=== PATIENT | female | born 2005 | race Caucasian/White ===

== ENCOUNTER 2025-02-07 01:43 | Emergency (ER) | payer BC ==
[~2025-02-07] VITALS: Ht 165.1 cm; Wt 70.5 kg
[2025-02-07 02:26] VITALS: TEMP 98
[2025-02-07 03:00] LABS: BASOPHILS % (AUTO) 0.4 % (0-1); EOSINOPHILS # (AUTO) 0.1 X10'3 (0-0.9); EOSINOPHILS % (AUTO) 1.6 % (0-6); HEMATOCRIT 40.2 % (35.0-45.0); HEMOGLOBIN 13.5 g/dl (12.0-16.0); LYMPHOCYTES # (AUTO) 3.5 X10'3 (1.1-4.8); LYMPHOCYTES % (AUTO) 38.7 % (21-51); MEAN CORPUSCULAR HEMOGLOBIN 30.8 PG (27.0-31.0); MEAN CORPUSCULAR HGB CONC 33.5 g/dL (33.0-36.5); MEAN PLATELET VOLUME 8.9 FL (7.4-10.4); MONOCYTES # (AUTO) 0.4 X10'3 (0-0.9); MONOCYTES % (AUTO) 4.5 % (2-12); NEUTROPHILS % (AUTO) 54.8 % (42-75); PLATELET COUNT 294 X10'3 (140-440); RED BLOOD COUNT 4.37 X10'6 (4.20-5.60); RED CELL DISTRIBUTION WIDTH 12.7 % (11.5-14.5); WHITE BLOOD COUNT 9.1 X10'3 (4.5-11.0)
[2025-02-07 03:05] LABS: BILIRUBIN,URINE NEGATIVE (Neg); CLARITY,URINE CLEAR (Clear); COLOR,URINE YELLOW (Yellow); GLUCOSE, URINE NEGATIVE (Neg); KETONES,URINE NEGATIVE (Neg); LEUKOCYTE ESTERASE ,URINE NEGATIVE (Neg); NITRITES, URINE NEGATIVE (Neg); OCCULT BLOOD,URINE NEGATIVE (Neg); PROTEIN,URINE NEGATIVE (Neg); UROBILINOGEN,URINE 0.2 E.U/dL (0.2-1.0)
[2025-02-07 03:08] LABS: UA COLLECTION TYPE VOIDED
--- NOTE | 2025-02-07 03:23 | Physician Documentation ---
History of Present Illness ~ Chief Complaint: Suicidal Ideation Stated Complaint: MENTAL HEALTH EVAL Time Seen by MD: 02:27 HPI Patient presents to the emergency room for evaluation of suicidal ideation. Self-inflicted cut olson that she reports to bilateral upper arms happened yesterday. She has been drinking this evening. Medication Reconciliation Allergies: Coded Allergies: No Known Allergies (Unverified , 02/07/25) Scheduled Cetirizine Hcl (Zyrtec), 1 CAP PO DAILY, (Reported) Duloxetine HCl (Cymbalta), 1 CAP PO DAILY, (Reported) Review of Systems ROS All review of systems negative except as per HPI Physical Exam Vital Signs: Temperature: 98.0, Source: Oral, Heart Rate: 95, Respiratory Rate: 18, BP: 129/87, Pulse Oximetry: 96, Weight: 70.450 Oxygen Flow Rate: 0 Physical Exam General: Patient is awake, alert, oriented x4, tearful Head: Normocephalic and atraumatic. Eyes: Conjunctival normal. EOMI. PERRL. ENT: Mucous membranes moist. Neck: Supple, trachea is midline. Chest: Clear to auscultation bilaterally without rales, rhonchi, or wheezes. There is no accessory muscle use or retractions. Cardiac: RRR without murmurs, gallops, or rubs. Psych: Suicidal, cooperative, good eye contact Progress Results/Orders Results/Orders Orders - SAMUEL BYRNE MD Covid19 Binax Poc Result Entry (02/07/25 02:45) Med Rec (02/07/25 03:01) 1799.11 (02/07/25 03:01) Close Observation Level (02/07/25 03:01) Substance Use Navigator (02/07/25 03:01) Regular Diet (02/07/25 Breakfast) Completed Orders - SAMUEL BYRNE MD Cbc/Diff (02/07/25 02:45) Urinalysis, Cult If Indicated (02/07/25 02:45) Drug Screen, Urine (02/07/25 02:45) CMP (02/07/25 02:45) Hcg, Ur Ql (02/07/25 03:01) Ethanol (02/07/25 02:40) TSH (02/07/25 02:40) Vital Signs 02/07/25 02/07/25 02:26 03:38 Temp 98.0 Pulse 95 Resp 18 16 B/P (MAP) 129/87 Pulse Ox 96 O2 Flow Rate 0 Laboratory Tests Test 02/07/25 02:17 02/07/25 02:20 02/07/25 02:40 Urine Specimen Description Voided Urine Color Yellow Urine Clarity Clear Urine pH 7.0 Urine Specific [place] <=1.005 Urine Protein Negative Urine Glucose (UA) Negative Urine Ketones Negative Urine Occult Blood Negative Urine Nitrite Negative Urine Bilirubin Negative Urine Urobilinogen 0.2 Urine Leukocyte Esterase Negative Urine Culture Indicated Not ind Volume Urine Centrifuged 10 ml Urine HCG, Qualitative Negative Urine Comment Urine Opiates Screen Negative Urine Methadone Screen Negative Urine Fentanyl Screen Negative Urine Barbiturates Screen Negative Urine Phencyclidine Screen Negative Urine Amphetamines Screen Negative Urine Benzodiazepines Screen Negative Urine Cocaine Screen Negative Urine Cannabinoids Screen Negative Drug Screen Comment SARS-CoV-2 Antigen (Rapid) Negative White Blood Count 9.1 Red Blood Count 4.37 Hemoglobin 13.5 Hematocrit 40.2 Mean Corpuscular Volume 92.0 Mean Corpuscular Hemoglobin 30.8 Mean Corpuscular Hemoglobin Concent 33.5 Red Cell Distribution Width 12.7 Platelet Count 294 Mean Platelet Volume 8.9 Neutrophils (%) (Auto) 54.8 Lymphocytes (%) (Auto) 38.7 Monocytes (%) (Auto) 4.5 Eosinophils (%) (Auto) 1.6 Basophils (%) (Auto) 0.4 Neutrophils # (Auto) 5.0 Lymphocytes # (Auto) 3.5 Monocytes # (Auto) 0.4 Eosinophils # (Auto) 0.1 Basophils # (Auto) 0.0 CBC Comment Sodium Level 146 H Potassium Level 4.3 Chloride Level 109 H Carbon Dioxide Level 24.1 Anion Gap 13 Blood Urea Nitrogen 4 L Creatinine 0.61 Estimated GFR/1.73 m2 > 90 BUN/Creatinine Ratio 6.6 L Glucose Level 95 Calcium Level 9.0 Total Bilirubin 0.3 Aspartate Amino Transf (AST/SGOT) 21 Alanine Aminotransferase (ALT/SGPT) 15 Alkaline Phosphatase 98 Total Protein 7.6 Albumin 4.1 Globulin 3.5 Albumin/Globulin Ratio 1.2 Thyroid Stimulating Hormone (TSH) 0.43 Chemistry Comments Ethyl Alcohol Level 183 H Medical Decision Making Findings Patient presents to the emergency room for evaluation of suicidal ideation. Differentials include but are not limited to thyroid disorder, suicidal ideation, gravely disabled, dysthymic disorder therefore labs ordered which were reassuring and patient is medically cleared for mental health evaluation. Departure Disposition: 30 STILL A PATIENT Impression: Primary Impression: Depression Additional Impression: Alcoholic intoxication Condition: Guarded Referrals: NO PRIMARY CARE PROVIDER (PCP) Signature Scribe Signature: No scribe Attestation: The note accurately reflects work and decisions made by me.Samuel Byrne MD 02/07/25 04:21 SAMUEL BYRNE MD Feb 07, 2025 03:23
[2025-02-07 03:33] LABS: URINE HCG NEGATIVE (NEG)
[2025-02-07 03:34] LABS: ALANINE AMINOTRANSFERASE 15 U/L (12-78); ALBUMIN 4.1 G/DL (3.4-5.0); ALBUMIN/GLOBULIN RATIO 1.2 (1.1-1.5); ALKALINE PHOSPHATASE 98 IU/L (20-180); ANION GAP 13 (8-16); ASPARTATE AMINO TRANSFERASE 21 U/L (10-37); BILIRUBIN,TOTAL 0.3 MG/DL (0.1-1.0); BLOOD UREA NITROGEN 4 MG/DL (7-18); BUN/CREATININE RATIO 6.6 (10.0-20.0); CHLORIDE 109 MMOL/L (99-107); CREATININE 0.61 MG/DL (0.40-0.90); GLUCOSE 95 MG/DL (70-104); SODIUM 146 MMOL/L (135-145); TOTAL CARBON DIOXIDE 24.1 MMOL/L (24-32); TOTAL PROTEIN 7.6 G/DL (6.4-8.2); eCRCL 132 ML/MIN; eGFR > 90 ML/MIN
[2025-02-07 03:38] LABS: URINE AMPHETAMINE SCREEN NEGATIVE (Neg); URINE BARBITUATE SCREEN NEGATIVE (Neg); URINE BENZODIAZEPINES SCREEN NEGATIVE (Neg); URINE CANNABINOID SCREEN NEGATIVE (Neg); URINE COCAINE SCREEN NEGATIVE (Neg); URINE METHADONE SCREEN NEGATIVE (Neg); URINE OPIATE SCREEN NEGATIVE (Neg); URINE PHENCYCLIDINE SCREEN NEGATIVE (Neg)
[2025-02-07 03:41] LABS: ETHANOL 183 MG/DL (<10); THYROID STIMULATING HORMONE 0.43 ulU/ml (0.34-4.50)
[2025-02-07] MEDS ORDERED: DULO60CA59 PO (03:44)
[2025-02-07] MEDS ORDERED: CETI10CA PO (03:44)
[2025-02-07 03:57] LABS: POTASSIUM 4.3 MMOL/L (3.5-5.1)
[2025-02-07 11:36] VITALS: BP 126/87; PULSE 95; RESP 18; O2SAT 96
== END 2025-02-07 11:38 | disposition home or self-care (01) ==
LOC: ER 01:44
DX: F10.129 Alcohol abuse with intoxication, unspecified (principal); F32.A Depression, unspecified; Z79.899 Other long term (current) drug therapy; Z20.822 Contact with and (suspected) exposure to COVID-19; Y90.9 Presence of alcohol in blood, level not specified
CPT/HCPCS: 36415; 80053; 80305; 80320; 81003; 81025; 84443; 85025; 87811; 99284